=== PATIENT | female | born 1935 | race Hispanic/Latino ===

== ENCOUNTER → 2018-02-22 | Outpatient (CLI) | payer MEDICARE ==
[~2018-02-22] MED LIST: ALENDRONATE SOD70 MG PO; BISCODYL PO; FEXOFENADINE HC60 MG PO; GADOBENATE DIMEGLUMINE 1 ML IV ONE; LISINOPRIL10 MG PO; TRIAMCINOLONE A15 G1 TOP; VIT D2 PO
[2018-02-22 15:05] LABS: BLOOD UREA NITROGEN 20 mg/dL (7-26); BUN/CREATININE RATIO 27 (6-25); CREATININE, SERUM 0.75 mg/dL (0.57-1.11); EST GLOMERULAR FILTRATION RATE > 60 ML/MIN (60-)
--- NOTE | 2018-02-23 07:12 | Diagnostic Imaging Report ---
Exam: Brain MRI without and with IV contrast History: Dizziness, neck mass. Comparison studies: None Technique: Precontrast sagittal and axial T2, axial DWI, axial T1 FLAIR, axial T2*GRE. Post contrast axial T2 FLAIR and axial coronal T1 FS Intravenous contrast: 10 cc of MultiHance. Findings: Several pulse sequences are somewhat limited by artifacts related to patient motion. Scalp: No abnormal signal. No masses. Bone marrow: Normal in signal intensity. Brain sulci: Mildly prominent. Ventricles: Mild compensatory dilatation. No hydrocephalus. Extra-axial spaces: No mass, no fluid collection. Parenchyma: No mass, hemorrhage or acute ischemia. Confluent T2 FLAIR hyperintense signal changes in the supratentorial white matter and in the ryan are nonspecific but may reflect chronic microvascular ischemic changes. No enhancing abnormalities. Sellar/suprasellar region: A 5 mm T2 hyperintense focus in the pituitary gland may represent incidental Rathke's cleft cyst or possibly adenoma. This finding may be of no clinical significance if in the absence of symptoms/abnormalities referrable to the hypothalamic-pituitary axis. Craniocervical junction: Patent foramen magnum. No Chiari one malformation. Vessels: Normal flow-voids in the arteries and sinuses. Incidental findings: Partially imaged nodule or lymph node in the right parotid gland with asymmetric signal changes and enhancement throughout the right parotid gland as well as suprahyoid jugular chain lymphadenopathy. Please refer to separate neck MRI report of the same date for further details. IMPRESSION: 1. Mild generalized volume loss. 2. Severe chronic microvascular ischemic changes. 3. No evidence of intracranial metastatic disease. 4. Incidental pituitary cyst or less likely cystic microadenoma. 5. Partially imaged signal abnormality in the right parotid gland with right parotid nodule versus enlarged intraparotid lymph node and right cervical lymphadenopathy concerning for malignancy. Please see separate MRI report from the same date for further details. Signed by: Dr. Daniel Forbes M.D. on 02/23/2018 7:09 AM
--- NOTE | 2018-02-23 07:43 | Diagnostic Imaging Report ---
Exam: Neck MRI without and with IV contrast History: Neck mass Comparison studies: None. Technique: Precontrast sagittal and axial T1 FLAIR, axial and coronal STIR, axial proton density, axial DWI. Post contrast sagittal and axial and coronal T1 and sagittal T2. Intravenous contrast: 10 cc MultiHance cc of Gadavist. Findings: Exam is limited by artifacts related patient motion. In spite of this limitation: Right parotid gland: There is a 2.1 x 1.2 x 2.0 cm (SI x AP x TV) enhancing nodule centered in the superficial lobe of the right parotid gland which extends beyond the expected location of the retromandibular vein to the deep lobe of the right parotid gland. Mass is heterogeneously hyperintense on T2, and hypointense on T1 and is of similar signal characteristics of surrounding enlarged lymph nodes described below. There are nonspecific reactive increased T2 hyperintense signal changes and enhancement throughout the deep and superficial lobe of the right parotid gland. Left parotid gland: Homogeneous, normal in size, no mass. Lymph nodes: There are multiple enlarged heterogeneously enhancing suprahyoid jugular chain lymph nodes largest level IIA lymph node measures approximately 2.3 cm in short axis. Scattered level IIB lymph nodes measure up to 1.0 cm in short axis. Enhancing IIA/III lymph node measure up to 1.1 cm. Enhancing right level IV lymph node measures 1.0 cm. No radiographically significant contralateral left cervical lymphadenopathy. Upper aerodigestive tract: No gross abnormalities. Specifically, no gross mass identified Vessels: The carotid and vertebral arteries as well as the internal jugular veins are patent. The right common carotid artery, internal jugular vein and right common carotid artery abut enlarged lymph nodes described above without yoli vascular encasement. Submandibular glands: Normal in size and homogeneous. No masses . Parotid: See above. Thyroid: Suboptimal evaluated due to artifacts. Otherwise, normal in size, no gross mass. Included paranasal sinuses: Clear. Temporal bones: No gross abnormalities. No gross asymmetric enhancement along the course of the right facial nerve to indicate perineural tumor. Skull base and facial bones: No bone marrow abnormalities. Cervical spine: Moderately degenerated disks from C4 to C7 with disc osteophyte complexes which in combination with thickened ligamentum flavum which result in moderate canal stenosis at these levels. Multilevel facet arthrosis. Multilevel foraminal stenosis due to uncovertebral and facet arthrosis (moderate on the right at C4-C5 and at C5-C6, bilaterally at C6-C7 IMPRESSION: Exam is limited by artifacts related to patient motion. In spite of this limitation: 1. Right parotid nodule or enlarged lymph node with nonspecific reactive changes throughout the right parotid gland. Findings are concerning for primary parotid malignancy and/or metastatic disease. Lymphoma is an additional consideration. Recommend ENT consultation and FNA to further evaluate. 2. Right cervical lymphadenopathy concerning for malignancy (Levels II, II, IV). No radiographically significant contralateral left cervical lymphadenopathy. 3. No gross mass identified in the upper aerodigestive tract. 4. Degenerative changes in the cervical spine. Signed by: Dr. Daniel Forbes M.D. on 02/23/2018 7:39 AM
== END ==
LOC: MRI 13:59
PROVIDERS: ATTEND Family Medicine
DX: R22.1 Localized swelling, mass and lump, neck (principal)
CPT/HCPCS: 36415; 70543; 70553; 82565; 84520

== ENCOUNTER → 2018-03-02 | Outpatient (CLI) | payer MEDICARE ==
--- NOTE | 2018-03-02 08:54 | Diagnostic Imaging Report ---
PROCEDURE: X-RAY UPPER GI SERIES WITH AIR CONTRAST TECHNIQUE:Multiple fluoroscopic spot images were acquired during the dynamic evaluation of the esophagus, stomach, and duodenum after the administration of effervescent crystals and thin and thick barium. Images were obtained in the upright and supine positions from multiple obliquities. Fluoroscopy time 3.7 minutes. Total dose 80.05 mGy. COMPARISON: CT chest 09/06/2017. INDICATIONS: HISTORY OF ESOPHAGEAL CANCER FINDINGS: ESOPHAGUS: Motility: Within normal limits. Mucosa: Unremarkable. Distensibility: Normal. GASTROESOPHAGEAL JUNCTION: No evidence of hiatal hernia. GASTROESOPHAGEAL REFLUX: Reflux to the level of the mid thoracic esophagus. STOMACH: Normally distensible and demonstrates normal contours and mucosal pattern. DUODENUM: Bulb and sweep are normal. Duodenal-jejunal junction is in the normal expected position. IMPRESSION: No acute radiographic abnormality. Gastroesophageal reflux to the level of the mid thoracic esophagus. Dictated by: Terry Strange M.D. on 03/02/2018 at 8:54 Electronically approved by: Terry Strange M.D. on 03/02/2018 at 8:54
== END ==
LOC: DX 02-24 07:20
PROVIDERS: ATTEND Family Medicine
DX: Z85.01 Personal history of malignant neoplasm of esophagus (principal)
CPT/HCPCS: 74246

== ENCOUNTER → 2018-03-28 | Day surgery (SDC) | payer MEDICARE ==
[2018-03-24 11:48] LABS: BASOPHILS % 0.5 % (0.0-1.0); EOSINOPHILS # (AUTO) 0.2 (0.0-0.4); EOSINOPHILS % 1.7 % (0.0-6.0); HEMOGLOBIN 12.7 g/dL (12.0-16.0); LYMPHOCYTES % 22.9 % (18.0-39.1); MEAN CORPUSCULAR HEMOGLOBIN 28.4 pg (28-32); MEAN CORPUSCULAR HGB CONC 33.4 g/dL (31-35); MONOCYTES # (AUTO) 0.8 (0.2-0.8); MONOCYTES % 8.9 % (4.4-11.3); NEUTROPHILS # (AUTO) 5.8 (2.1-6.9); NEUTROPHILS % 65.5 % (38.7-80.0); PLATELET COUNT 258 x10e3/uL (140-360); RED BLOOD COUNT 4.47 x10e6/uL (3.6-5.1); RED CELL DISTRIBUTION WIDTH 14.2 % (11.7-14.4)
[2018-03-24 12:12] LABS: BLOOD UREA NITROGEN 13 mg/dL (7-26); BUN/CREATININE RATIO 19 (6-25); CALCIUM 10.8 mg/dL (8.4-10.2); CARBON DIOXIDE 27 mmol/L (22-29); CHLORIDE 106 mmol/L (98-107); CREATININE, SERUM 0.67 mg/dL (0.57-1.11); EST GLOMERULAR FILTRATION RATE > 60 ML/MIN (60-); GLUCOSE 94 mg/dL (74-118); SODIUM 142 mmol/L (136-145)
--- NOTE | 2018-03-24 17:01 | Diagnostic Imaging Report ---
PROCEDURE: Frontal and lateral views of the chest. COMPARISON: Chest CT 09/06/2017 INDICATIONS: PREOPERATIVE CHEST XRAY FOR SURGERY FINDINGS: Lines/tubes: None. Lungs: Stable appearance of the left hilar region compared to chest CT 09/06/2017 which may reflect fibrosis from infection or radiation. The lungs are well inflated and otherwise clear. There is no evidence of pneumonia or pulmonary edema. Pleura: There is no pleural effusion or pneumothorax. Previously noted pleural thickening in the left chest is better seen on prior CT. Heart and mediastinum: Tortuous and partially calcified aorta. The heart and the mediastinum are otherwise normal. Bones: No acute bony abnormality. Stable T6 compression deformity. IMPRESSION: No acute cardiopulmonary disease. Stable appearance of the left hilar region compared to chest CT 09/06/2017. Previously noted left pleural thickening is not well visualized radiographically. Dictated by: Arnaud Carbajal M.D. on 03/24/2018 at 17:03 Electronically approved by: Arnaud Carbajal M.D. on 03/24/2018 at 17:03
[~2018-03-28] MED LIST changes: +BUPIVACAINE HCL 0.5% INJ 30 ML VIAL INJ ONE; +CEFAZOLIN SOD 1 GM VIAL ONE; +DEXAMETHASONE SOD PHOS INJ 4 MG/ML VIAL ONE; -GADOBENATE DIMEGLUMINE 1 ML IV ONE; +GLYCOPYRROLATE INJ 1MG/ 5 ML SYR ONE; +LIDOCAINE HCL 2% LOCAL INJ 5 ML SDV VIAL INJ ONE; +ONDANSETRON HCL INJ 2 MG/ML VIAL ONE; +PHENYLEPHRINE HCL 1% 10 MG/ML VIAL ONE; +PROPOFOL IV EMULSION 10 MG/ML 20 ML VIAL ONE; +ROCURONIUM BROMIDE 10 MG/ML 5ML VIAL ONE; +SEVOFLURANE INHAL SOLN 250 ML PEN BTL ONE; +SUCCINYLCHOLINE 200 MG/10 ML SYR ONE
--- OUTSIDE RECORDS SUMMARY | 2018-03-28 10:13 | XMS REPORT ---
Author Author [facility] Address Unknown Phone Unavailable Care Team Providers Care [employer] Name Role Phone YOLI ELISE Unavailable Unavailable LEELEE SHEIKH Unavailable Unavailable DAISY MUNGUIA Unavailable Unavailable Problems This patient has no known problems. Allergies, Adverse Reactions, Alerts This patient has no known allergies or adverse reactions. Medications This patient has no known medications. Results Test Description Test Time Test Comments Text Results Atomic Results Result Comments CHEST 2 VIEWS [place] [address] Patient Name: RONNA NGUYEN MR #: [id number] : 1935 Age/Sex: 82/F Req #: [id number] Adm Physician: Ordered by: AGNIESZKA WILCOX MD Report #: [id number] Location: OR Room/Bed: Procedure: [id number] DX/CHEST 2 VIEWS Exam Date: 03/24/18 Exam Time: 1147 REPORT STATUS: Signed PROCEDURE: Frontal and lateral views of the chest. COMPARISON: Chest CT 09/06/2017 INDICATIONS: PREOPERATIVE CHEST XRAY FOR SURGERY FINDINGS: Lines/ tubes: None. Lungs: Stable appearance of the left hilar region compared to chest CT 09/06/2017 which may reflect fibrosis from infection or radiation. The lungs are well inflated and otherwise clear. There is no evidence of pneumonia or pulmonary edema. Pleura: There is no pleural effusion or pneumothorax. Previously noted pleural thickening in the left chest is better seen on prior CT. Heart and mediastinum: Tortuous and partially calcified aorta. The heart and the mediastinum are otherwise normal. Bones: No acute bony abnormality. Stable T6 compression deformity. IMPRESSION: No acute cardiopulmonary disease. Stable appearance of the left hilar region compared to chest CT 09/06/2017. Previously noted left pleural thickening is not well visualized radiographically. Dictated by: Arnaud Araya M.D. on 03/24/2018 at 17:03 Electronically approved by: Arnaud Araya M.D. on 03/24/2018 at 17 :03 Dictated By: ARNAUD ARAYA MD 02 Transcribed By: GERSON on 03/24/181702 COPY TO: AGNIESZKA WILCOX III UPPER GI W/AIR CONTR [place] [address] Patient Name: RONNA NGUYEN MR #: [id number] : 1935 Age/Sex: 82/F Req #: [id number] Adm Physician: Ordered by: AGUILAR SALVADOR, LEELEE Mo MD Report #: [id number] Location: DX Room/Bed: ___ Procedure: [id number] DX/UPPER GI W/AIR CONTR Exam Date: 03/02/18 Exam Time: 0730 REPORT STATUS: Signed PROCEDURE: X-RAY UPPER GI SERIES WITH AIR CONTRAST TECHNIQUE: Multiple fluoroscopic spot images were acquired during the dynamic evaluation of the esophagus, stomach, and duodenum after the administration of effervescent crystals and thin and thick barium. Images were obtained in the upright and supine positions from multiple obliquities. Fluoroscopy time 3.7 minutes. Total dose 80.05 mGy. COMPARISON: CT chest 09/06/2017. INDICATIONS: HISTORY OF ESOPHAGEAL CANCER FINDINGS: ESOPHAGUS: Motility: Within normal limits. Mucosa: Unremarkable. Distensibility: Normal. GASTROESOPHAGEAL JUNCTION: No evidence of hiatal hernia. GASTROESOPHAGEAL REFLUX: Reflux to the level of the mid thoracic esophagus. STOMACH: Normally distensible and demonstrates normal contours and mucosal pattern. DUODENUM: Bulb and sweep are normal. Duodenal-jejunal junction is in the normal expected position. IMPRESSION: No acute radiographic abnormality. Gastroesophageal reflux to the level of the mid thoracic esophagus. Dictated by: Radha Aly M.D. on 03/02/2018 at 8: 54 Electronically approved by: Radha Aly M.D. on 03/02/2018 at 8:54 Dictated By: RADHA ALY MD 3 Transcribed By: GERSON on 03/02/18853 COPY TO : LEELEE SHEIKH MRI BRAIN WOW [place] [address] Patient Name: RONNA NGUYEN MR #: [id number] : 1935 Age/Sex: 82/F Req #: [id number] Adm Physician: Ordered by: AGUILAR SALVADOR, LEELEE Mo MD Report #: [id number] Location: MRI Room/Bed: ____ Procedure: [id number] MRI/MRI BRAIN WOW Exam Date: Exam Time: REPORT STATUS: Signed Exam: Brain MRI without and with IV contrast History: Dizziness, neck mass. Comparison studies: None Technique: Precontrast sagittal and axial T2, axial DWI, axial T1 FLAIR, axial T2*GRE. Post contrast axial T2 FLAIR and axial coronal T1 FS Intravenous contrast: 10 cc of MultiHance. Findings: Several pulse sequences are somewhat limited by artifacts related to patient motion. Scalp: No abnormal signal. No masses. Bone marrow: Normal in signal intensity. Brain sulci: Mildly prominent. Ventricles: Mild compensatory dilatation. No hydrocephalus. Extra-axial spaces: No mass, no fluid collection. Parenchyma: No mass, hemorrhage or acute ischemia. Confluent T2 FLAIR hyperintense signal changes in the supratentorial white matter and in the ryan are nonspecific but may reflect chronic microvascular ischemic changes. No enhancing abnormalities. Sellar/suprasellar region: A 5 mm T2 hyperintense focus in the pituitary gland may represent incidental Rathke' s cleft cyst or possibly adenoma. This finding may be of no clinical significance if in the absence of symptoms/abnormalities referrable to the hypothalamic-pituitary axis. Craniocervical junction: Patent foramen magnum. No Chiari one malformation. Vessels: Normal flow-voids in the arteries and sinuses. Incidental findings: Partially imaged nodule or lymph node in the right parotid gland with asymmetric signal changes and enhancement throughout the right parotid gland as well as suprahyoid jugular chain lymphadenopathy. Please refer to separate neck MRI report of the same date for further details. IMPRESSION: 1. Mild generalized volume loss. 2. Severe chronic microvascular ischemic changes. 3. No evidence of intracranial metastatic disease. 4. Incidental pituitary cyst or less likely cystic microadenoma. 5. Partially imaged signal abnormality in the right parotid gland with right parotid nodule versus enlarged intraparotid lymph node and right cervical lymphadenopathy concerning for malignancy. Please see separate MRI report from the same date for further details. Signed by: Dr. Yoli Forbes M.D. on 02/23/2018 7:09 AM Dictated By: YOLI FORBES MD 8 Transcribed By: DALLIN on 02/23/18708 COPY TO: LEELEE SHEIKH MRI NECK WOW [place] [address] Patient Name: RONNA NGUYEN MR #: [id number] : 1935 Age/Sex: 82/F Req #: [id number] Adm Physician: Ordered by: LEELEE SHEIKH MD, MD Report #: [id number] Location: MRI Room/Bed: ____ Procedure: [id number] MRI/MRI NECK WOW Exam Date: Exam Time: REPORT STATUS: Signed Exam: Neck MRI without and with IV contrast History: Neck mass Comparison studies: None. Technique : Precontrast sagittal and axial T1 FLAIR, axial and coronal STIR, axial proton density, axial DWI. Post contrast sagittal and axial and coronal T1 and sagittal T2. Intravenous contrast: 10 cc MultiHance cc of Gadavist. Findings: Exam is limited by artifacts related patient motion. In spite of this limitation: Right parotid gland: There is a 2.1 x 1.2 x 2.0 cm (SI x AP x TV) enhancing nodule centered in the superficial lobe of the right parotid gland which extends beyond the expected location of the retromandibular vein to the deep lobe of the right parotid gland. Mass is heterogeneously hyperintense on T2, and hypointense on T1 and is of similar signal characteristics of surrounding enlarged lymph nodes described below. There are nonspecific reactive increased T2 hyperintense signal changes and enhancement throughout the deep and superficial lobe of the right parotid gland. Left parotid gland: Homogeneous, normal in size, no mass. Lymph nodes: There are multiple enlarged heterogeneously enhancing suprahyoid jugular chain lymph nodes largest level IIA lymph node measures approximately 2.3 cm in short axis. Scattered level IIB lymph nodes measure up to 1.0 cm in short axis. Enhancing IIA/III lymph node measure up to 1.1 cm. Enhancing right level IV lymph node measures 1.0 cm. No radiographically significant contralateral left cervical lymphadenopathy. Upper aerodigestive tract: No gross abnormalities. Specifically, no gross mass identified Vessels: The carotid and vertebral arteries as well as the internal jugular veins are patent. The right common carotid artery, internal jugular vein and right common carotid artery abut enlarged lymph nodes described above without yoli vascular encasement. Submandibular glands: Normal in size and homogeneous. No masses . Parotid: See above. Thyroid: Suboptimal evaluated due to artifacts. Otherwise, normal in size, no gross mass. Included paranasal sinuses: Clear. Temporal bones: No gross abnormalities. No gross asymmetric enhancement along the course of the right facial nerve to indicate perineural tumor. Skull base and facial bones: No bone marrow abnormalities. Cervical spine: Moderately degenerated disks from C4 to C7 with disc osteophyte complexes which in combination with thickened ligamentum flavum which result in moderate canal stenosis at these levels. Multilevel facet arthrosis. Multilevel foraminal stenosis due to uncovertebral and facet arthrosis ( moderate on the right at C4-C5 and at C5-C6, bilaterally at C6-C7 IMPRESSION: Exam is limited by artifacts related to patient motion. In spite of this limitation: 1. Right parotid nodule or enlarged lymph node with nonspecific reactive changes throughout the right parotid gland. Findings are concerning for primary parotid malignancy and/or metastatic disease. Lymphoma is an additional consideration. Recommend ENT consultation and FNA to further evaluate. 2. Right cervical lymphadenopathy concerning for malignancy (Levels II, II, IV). No radiographically significant contralateral left cervical lymphadenopathy. 3. No gross mass identified in the upper aerodigestive tract. 4. Degenerative changes in the cervical spine. Signed by: Dr. Yoli Forbes M.D. on 02/23/2018 7:39 AM Dictated By: YOLI FORBES MD 8 Transcribed By: DALLIN on 02/23/18738 COPY TO: LEELEE SHEIKH CT CHEST W [place] [address] Patient Name: RONNA NGUYEN MR #: [id number] : 1935 Age/Sex: 81/F Req #: [id number] Adm Physician: Ordered by: DAISY MUNGUIA MD Report #: [id number] Location: Room/Bed: Procedure: [id number] CT/CT CHEST W Exam Date: Exam Time: REPORT STATUS: Signed PROCEDURE: CT scan of the chest WITH intravenous contrast, using pulmonary emboli protocol. TECHNIQUE: The chest was scanned utilizing a multidetector helical scanner from the lung apex through the level of the adrenal glands after the IV administration of 100 cc of Isovue 370. Coronal and sagittal multiplanar reformations were obtained. Total DLP: 437 mGy-cm COMPARISON: None. INDICATIONS: LUNG MASS, PE PROTOCOL FINDINGS: Lines/tubes: None. Lungs and Airways: Mild centrilobular emphysematous changes. Mild atelectasis in the right middle lobe. Perihilar fibrosis with associated bronchiectasis and atelectasis involving the left upper lobe and left lower lobe with associated retraction. There is nonspecific soft tissue thickening around the left hilar region. Good contrast bolus. No pulmonary emboli. Pulmonary vasculature in the left lung is attenuated and tortuous secondary to the perihilar fibrosis. Pleura: Small left pleural effusion. There is a 0.6 cm soft tissue thickening of the posterior pleura. Heart and mediastinum: The thyroid gland is normal. No significant mediastinal, hilar or axillary lymphadenopathy is seen. The heart and pericardium are within normal limits. Main pulmonary arteries enlarged measuring 3.2 cm. Ascending aorta measures 3.3 cm. Significant next soft plaque and calcified plaque in the aorta. Severe tri vessel coronary artery calcifications. Soft tissues: Normal. Abdomen: Limited contrast-enhanced views of the upper abdomen show no abnormality within the visualized liver, spleen, pancreas, or kidneys. The adrenal glands are normal. Bones: Diffuse osteopenia. Wedge compression deformity of T6 vertebral body. IMPRESSION: 1. Severe pulmonary fibrosis of the left hilar region with associated bronchiectasis and atelectasis and associated small left pleural effusion. There is nonspecific and may relate related to prior severe infection. Old TB typically would be more cavitary. Additional consideration would be prior left hilar radiation. 2. Soft tissue component of the left pleural effusion. This raises concern for mesothelioma. This is also possible that this has invaded the left hilar region causing left hilar retraction. 3. No pulmonary emboli. Dictated by: Nikita Velez M.D. on 09/06/2017 at 18:38 Electronically approved by: Nikita Velez M.D. on 09/06/2017 at 18:38 Dictated By: NIKITA VELEZ MD 37 Transcribed By: GERSON on 09/06/171837 COPY TO: DAISY MUNGUIA MD
--- NOTE | 2018-03-28 14:07 | Operative Report ---
DATE OF PROCEDURE: March 28, 2018 PREOPERATIVE DIAGNOSIS: Right cervical lymphadenopathy. POSTOPERATIVE DIAGNOSIS: Right cervical lymphadenopathy. PROCEDURE: Excision of deep right cervical lymph node. SCHOOL EXAMINER: None. ANESTHESIA: General. INDICATIONS AND FINDINGS: Patient is an 82-year-old female with multiple enlarged lymph nodes on the right side of the neck. Previous needle biopsy was not diagnostic. At surgery, the patient was found to have an enlarged lymph node, which was excised which was about 2 cm in diameter. This cervical note was beneath the platysma muscle and cervical fascia abutting the jugular vein. TECHNIQUE: After adequate general endotracheal anesthesia with the patient in the supine position, the right neck was prepped and draped in a sterile fashion with Adam solution. A transverse incision was made over the area of the mass, and carried down through the subcutaneous tissue and platysma. The superficial cervical fascia was opened also and node was identified. It was excised from the surrounding tissues. There was a large vein going to the node, which was divided between Hemoclips. The node was completely removed intact. It was about 2 cm in diameter. Some bleeding from the vein was controlled with Hemoclip and hemostasis achieved. The wound was irrigated with saline and inspected for hemostasis, which was seen to be adequate. The wound was then infiltrated with 0.5% Marcaine. The platysma was then closed with a running suture of 3-0 Vicryl. Skin was closed with a running subcuticular suture of 4-0 Vicryl. Dermabond and sterile dressing were applied. Patient tolerated the procedure well. Estimated blood loss was 20 mL. There were no complications. All counts were correct. Patient was taken to the recovery room in satisfactory condition. Job#: [id number] RI cc:JAMIR BOYCE MD
== END | disposition home or self-care (01) ==
LOC: OR 10:11
PROVIDERS: ATTEND Surgery
DX: C81.11 Nodular sclerosis Hodgkin lymphoma, lymph nodes of head, face, and neck (principal); Z01.810 Encounter for preprocedural cardiovascular examination; Z01.812 Encounter for preprocedural laboratory examination; Z01.811 Encounter for preprocedural respiratory examination; F41.9 Anxiety disorder, unspecified; R05 Cough; Z85.118 Personal history of other malignant neoplasm of bronchus and lung; I10 Essential (primary) hypertension
CPT/HCPCS: 36415; 38510; 71046; 80048; 85025; 88307; 88342; 93005; J0690; J1100; J2001; J2370; J2405; 88304